=== PATIENT | male | born 1945 | race Two or more races ===

== ENCOUNTER 2022-02-04 11:22 | Emergency (ER) | payer OTHER ==
[~2022-02-04] VITALS: Ht 170.2 cm; Wt 95.3 kg
[~2022-02-04 11:22] MED LIST: NABUMETONE750 MG PO
== END 2022-02-04 16:43 | disposition home or self-care (01) ==
LOC: ER 11:22
DX: M25.511 Pain in right shoulder (principal); I10 Essential (primary) hypertension

== ENCOUNTER 2022-08-16 13:07 | Emergency (ER) | payer OTHER ==
[~2022-08-16] VITALS: Ht 170.2 cm; Wt 98.9 kg
== END 2022-08-16 17:26 | disposition home or self-care (01) ==
LOC: ER 13:07
DX: R22.43 Localized swelling, mass and lump, lower limb, bilateral (principal); I10 Essential (primary) hypertension

== ENCOUNTER 2025-07-18 10:26 | Outpatient (CLI) | payer OTHER | END 2025-07-18 10:28 | disposition home or self-care (01) | LOC: NUCLEAR 10:26 | DX: I73.9 Peripheral vascular disease, unspecified (principal) ==

== ENCOUNTER 2025-07-18 10:43 | Outpatient (CLI) | payer OTHER | END 2025-07-18 10:47 | disposition home or self-care (01) | LOC: RAD 10:43 | DX: J44.9 Chronic obstructive pulmonary disease, unspecified (principal) ==

== ENCOUNTER 2025-07-22 10:39 | Outpatient (CLI) | payer OTHER | END 2025-07-22 10:43 | disposition home or self-care (01) | LOC: NUCLEAR 10:39 | DX: I73.9 Peripheral vascular disease, unspecified (principal); I87.2 Venous insufficiency (chronic) (peripheral) ==